=== PATIENT | male | born 1995 | race Caucasian/White ===

== ENCOUNTER → 2018-01-27 12:01 | Outpatient (CLI) | payer BC, MEDICAID, SELFPAY ==
[2018-01-27 14:30] LABS: Erythrocyte Sedimentation Rate 8 mm/hr (0-15)
[2018-01-27 14:38] LABS: Absolute Lymphocyte Count 1.16 X10^3/ul (0.83-4.51); Absolute Neutrophil Count 3.5 X10^3/uL (2.0-7.7); Basophil# 0.02 X10^3/uL; Basophil% 0.4 % (0-1); Eosinophil# 0.23 X10^3/uL; Hematocrit 41.4 % (40-54); Hemoglobin 13.1 g/dl (13.0-16.5); Lymphocyte # 1.16 X10^3/ul (4.0); Lymphocyte % 20.4 % (19-41); Mean Corp Hgb Conc 31.6 g/gl (32-36); Mean Corpuscular Hgb 25.9 pg (27.0-32.0); Mean Corpuscular Volume 81.8 fL (80-94); Mean Platelet Vol. 8.9 fl (6.2-12.0); Monocyte# 0.75 X10^3/uL; Monocyte% 13.2 % (0-10); Neutrophil # 3.53 X10^3/uL (2.7-7.7); Platelet Count 315 K/mm3 (150-450); RBC Distribution Width CV 14.2 % (11.6-14.6); RBC Distribution Width SD 42.4 fl (35.1-43.9); Red Blood Count 5.06 M/mm3 (4.6-6.2); White Blood Count 5.7 K/mm3 (4.4-11.0)
[2018-01-27 14:40] LABS: AST(SGOT) 21 U/L (15-37); Alanine Aminotransfer ALT/SGPT 26 U/L (16-61); Albumin, Serum 3.8 g/dL (3.2-5.0); Alkaline Phosphatase 81 U/L (45-117); Anion Gap 7 (5-15); BUN 12 mg/dL (7-18); BUN/Creat Ratio 12.3 RATIO (10-20); Calcium,Total 8.7 mg/dL (8.5-10.1); Chloride 105 mmol/L (98-107); Creatinine, Serum 0.98 mg/dL (0.70-1.30); EST Glomerular Filtration Rate 99 mL/min (>60); Est Glom Filt Rate - Afr Amer 120 mL/min (>60); Glucose 88 mg/dL (74-106); Protein, Total 7.8 g/dL (6.4-8.2); Sodium Level 141 mmol/L (136-145)
[2018-01-27 14:41] LABS: POSITIVE COUNT NO; POSITIVE DIFFERENTIAL NO; POSITIVE MORPHOLOGY NO
== END ==
PROVIDERS: Family Provider Family Medicine; PCP Family Medicine; Visit Provider Family Medicine
DX: K51.90 Ulcerative colitis, unspecified, without complications (principal)
CPT/HCPCS: 36415; 80053; 85025; 85652

== ENCOUNTER → 2018-07-21 11:13 | Outpatient (CLI) | payer BC, MEDICAID, SELFPAY ==
[2015-12-06 10:06] VITALS: BMI 21.1
[2018-07-21 13:40] LABS: Absolute Lymphocyte Count 0.97 X10^3/ul (0.83-4.51); Basophil# 0.02 X10^3/uL; Basophil% 0.4 % (0-1); Eosinophil# 0.13 X10^3/uL; Eosinophils% 2.7 % (0-5); Hemoglobin 13.6 g/dl (13.0-16.5); Lymphocyte # 0.97 X10^3/ul (4.0); Lymphocyte % 20.2 % (19-41); Mean Corp Hgb Conc 32.4 g/gl (32-36); Mean Corpuscular Hgb 27.2 pg (27.0-32.0); Mean Platelet Vol. 9.2 fl (6.2-12.0); Monocyte# 0.65 X10^3/uL; Monocyte% 13.5 % (0-10); Neutrophil # 3.03 X10^3/uL (2.7-7.7); POSITIVE COUNT NO; POSITIVE DIFFERENTIAL NO; POSITIVE MORPHOLOGY NO; Platelet Count 305 K/mm3 (150-450); RBC Distribution Width CV 13.4 % (11.6-14.6); RBC Distribution Width SD 40.3 fl (35.1-43.9); White Blood Count 4.8 K/mm3 (4.4-11.0)
[2018-07-21 13:59] LABS: ALB/GLOB Ratio 1.2 RATIO (0.9-2.4); AST(SGOT) 20 U/L (15-37); Alanine Aminotransfer ALT/SGPT 36 U/L (16-61); Albumin, Serum 4.1 g/dL (3.2-5.0); Alkaline Phosphatase 77 U/L (45-117); Anion Gap 11 (5-15); BUN 10 mg/dL (7-18); BUN/Creat Ratio 11.4 RATIO (10-20); Calcium,Total 9.1 mg/dL (8.5-10.1); Chloride 106 mmol/L (98-107); Creatinine, Serum 0.88 mg/dL (0.70-1.30); EST Glomerular Filtration Rate 112 mL/min (>60); Est Glom Filt Rate - Afr Amer 136 mL/min (>60); Globulin 3.5 g/dL (2.2-4.2); Glucose 80 mg/dL (74-106); Potassium 3.9 mmol/L (3.5-5.1); Protein, Total 7.6 g/dL (6.4-8.2); Sodium Level 143 mmol/L (136-145)
== END ==
PROVIDERS: Family Provider Family Medicine; PCP Family Medicine; Visit Provider Family Medicine
DX: K51.90 Ulcerative colitis, unspecified, without complications (principal)
CPT/HCPCS: 36415; 80053; 85025

== ENCOUNTER → 2019-01-19 10:22 | Outpatient (CLI) | payer BC, MEDICAID, SELFPAY ==
[2015-12-06 10:06] VITALS: BMI 21.1
[2019-01-19 12:39] LABS: AST(SGOT) 22 U/L (15-37); Alanine Aminotransfer ALT/SGPT 21 U/L (16-61); Albumin, Serum 3.6 g/dL (3.2-5.0); Alkaline Phosphatase 72 U/L (45-117); Anion Gap 6 (5-15); BUN 12 mg/dL (7-18); BUN/Creat Ratio 10.2 RATIO (10-20); Calcium,Total 8.9 mg/dL (8.5-10.1); Chloride 105 mmol/L (98-107); Creatinine, Serum 1.18 mg/dL (0.70-1.30); EST Glomerular Filtration Rate 79 mL/min (>60); Est Glom Filt Rate - Afr Amer 96 mL/min (>60); Globulin 3.6 g/dL (2.2-4.2); Glucose 79 mg/dL (74-106); Potassium 4.2 mmol/L (3.5-5.1); Protein, Total 7.2 g/dL (6.4-8.2); Sodium Level 138 mmol/L (136-145)
[2019-01-19 12:53] LABS: Absolute Lymphocyte Count 0.77 X10^3/ul (0.83-4.51); Absolute Neutrophil Count 3.2 X10^3/uL (2.0-7.7); Basophil# 0.03 X10^3/uL; Basophil% 0.6 % (0-1); Eosinophil# 0.28 X10^3/uL; Eosinophils% 5.4 % (0-5); Hematocrit 39.8 % (40-54); Lymphocyte # 0.77 X10^3/ul (4.0); Lymphocyte % 14.9 % (19-41); Mean Corp Hgb Conc 32.7 g/gl (32-36); Mean Corpuscular Hgb 26.9 pg (27.0-32.0); Mean Corpuscular Volume 82.4 fL (80-94); Mean Platelet Vol. 8.8 fl (6.2-12.0); Monocyte# 0.89 X10^3/uL; Monocyte% 17.2 % (0-10); Neutrophil % 61.9 % (47-70); Platelet Count 383 K/mm3 (150-450); RBC Distribution Width CV 13.3 % (11.6-14.6); RBC Distribution Width SD 40.5 fl (35.1-43.9); Red Blood Count 4.83 M/mm3 (4.6-6.2); White Blood Count 5.2 K/mm3 (4.4-11.0)
[2019-01-19 13:03] LABS: POSITIVE COUNT NO; POSITIVE DIFFERENTIAL NO; POSITIVE MORPHOLOGY NO
[2019-01-19 13:05] LABS: Erythrocyte Sedimentation Rate 13 mm/hr (0-15)
== END ==
PROVIDERS: Family Provider Family Medicine; PCP Family Medicine; Referring Provider Family Medicine; Visit Provider Family Medicine
DX: K51.90 Ulcerative colitis, unspecified, without complications (principal)
CPT/HCPCS: 36415; 80053; 85025; 85652

== ENCOUNTER 2019-01-29 17:19 | Emergency (ER) | payer BC, MEDICAID, SELFPAY ==
[2019-01-29 17:19] VITALS: BP 128/76; PULSE 112; RESP 16; TEMP 37.3; O2SAT 99; BMI 24.3
--- NOTE | 2019-01-29 18:00 | ED.VIS.GEN ---
History of Present Illness <TariBenny - Last Filed: 01/29/19 19:01> Informant: Patient, Family Onset: Yesterday Context: Gradual Onset Timing: Continuous Quality: aching Location: left calf Current Severity: Moderate Maximum Severity: Severe Worsened by: walking Relieved by: rest Associated Symptoms: calf swellinbg Narrative: 23-year-old male with a past medical history of ulcerative colitis presents with left calf pain and swelling. Patient recently was treated with Bactrim for cellulitis of his left calf after a bug bite. He was also treated with prednisone for this. He finished his prednisone yesterday. Since last evening he has had progressively worsening pain and swelling localized to the left calf. He denies any trauma or injury. He is having difficulty ambulating secondary to the pain. He has no redness or new wound. He has no numbness or tingling. No chest pain or shortness of breath. No recent travel or surgery or history of DVT or PE. Prior similar symptoms: Yes Recent Illness/Hospitalization: No <Tien Amos - Last Filed: 02/11/19 15:47> Chief Complaint: Lower Extremity Injury Past Medical History <TariBenny - Last Filed: 01/29/19 19:01> Past Medical History: - - ulcerative colitis Surgical History: no surgical history Smoking Status: Never smoker - Family History Maternal Family History: Reports: Hypertension Paternal Family History: Reports: - - gerd <Renetta Amosony - Last Filed: 02/11/19 15:47> - Allergies and Home Meds Allergies/Adverse Reactions: Allergies No Known Allergies Allergy (Verified 01/29/19 17:22) Primary Care Physician: Arash Ontiveros MD [Primary Care Provider] - 1 Week if not improving Review of Systems All systems negative except as indicated Musculoskeletal: Reports: Swelling, Extremity Pain <Tien Amos - Last Filed: 02/11/19 15:47> Physical Exam Vital Signs/Narrative: Vital Signs Temp Pulse Resp BP Pulse Ox 01/29/19 17:19 99.1 F 112 H 16 128/76 H 99 <TariBenny - Last Filed: 01/29/19 19:01> Vital Signs/Narrative: Vital Signs Temp Pulse Resp BP Pulse Ox 01/29/19 17:19 99.1 F 112 H 16 128/76 H 99 Inital Vital Signs reviewed: Yes General: Well nourished, Well developed, No Acute Distress Head: Normocephalic, Atraumatic Eyes: Perrl, EOMI ENT: Moist mucous membranes Neck: Supple, Nontender Cardiovascular: Regular rate, Regular rhythm Respiratory: No distress, CTA bilaterally, Chest nontender Abdomen: Soft, Nontender, Nondistended, Normal bowel sounds, No masses Back: Nontender Extremities: Edema - Left calf swelling but there is no redness or warmth or signs of trauma or infection. Patient has normal plantarflexion and dorsiflexion actively. No pain over the Achilles. Vazquez test negative. DP and PT pulse are normal. Sensation is normal.. Negative for: Tenderness, Calf Tenderness Skin: Normal color, No rash Neurological: Alert, Oriented x3, Normal Strength, Normal Sensation, Normal DTR Psychological: Normal affect <Tien Amos - Last Filed: 02/11/19 15:47> Diagnostic/Tx/Re-eval - Medical Decision Making Patient presented for evaluation secondary to left calf pain. IV was established laboratory studies were obtained. CBC was unremarkable, no evidence of leukocytosis. Chemistry panel shows normal renal function normal electrolytes. D-dimer was found to be negative. CK was negative making the likelihood of myositis or other infiltrative infection or process very unlikely. Patient was reevaluated, continues to have normal circulation, normal neurologic function, normal range of motion, and no real objective findings other than pain in his calf. At this point this likely is an element of a calf strain. Patient was recommended conservative management measures, was given reassurance, and the patient was discharged. <Benny Marc - Last Filed: 01/29/19 19:01> ED Disposition <Benny Marc - Last Filed: 01/29/19 19:01> <Tien Amos - Last Filed: 02/11/19 15:47> - Plan for ED Patient: Disposition: Home or Assisted Living Diagnosis: Pain of left calf Instructions: Leg Spasm Referrals: Arash Ontiveros MD [Primary Care Provider] - 1 Week if not improving
[2019-01-29 18:17] LABS: Absolute Lymphocyte Count 1.43 X10^3/ul (0.83-4.51); Absolute Neutrophil Count 7.8 X10^3/uL (2.0-7.7); Basophil# 0.04 X10^3/uL; Basophil% 0.4 % (0-1); Eosinophil# 0.13 X10^3/uL; Eosinophils% 1.2 % (0-5); Hematocrit 38.3 % (40-54); Hemoglobin 12.5 g/dl (13.0-16.5); Lymphocyte # 1.43 X10^3/ul (4.0); Lymphocyte % 13.6 % (19-41); Mean Corp Hgb Conc 32.6 g/gl (32-36); Mean Corpuscular Volume 82.7 fL (80-94); Mean Platelet Vol. 8.3 fl (6.2-12.0); Monocyte# 1.13 X10^3/uL; Monocyte% 10.7 % (0-10); Neutrophil # 7.78 X10^3/uL (2.7-7.7); Neutrophil % 73.9 % (47-70); Platelet Count 321 K/mm3 (150-450); RBC Distribution Width CV 13.3 % (11.6-14.6); RBC Distribution Width SD 40.7 fl (35.1-43.9); Red Blood Count 4.63 M/mm3 (4.6-6.2); White Blood Count 10.5 K/mm3 (4.4-11.0)
[2019-01-29 18:21] LABS: POSITIVE COUNT NO; POSITIVE DIFFERENTIAL NO; POSITIVE MORPHOLOGY NO
[2019-01-29 18:26] LABS: Anion Gap 10 (5-15); BUN 19 mg/dL (7-18); BUN/Creat Ratio 18.6 RATIO (10-20); Calcium,Total 8.9 mg/dL (8.5-10.1); Chloride 104 mmol/L (98-107); Creatinine, Serum 1.02 mg/dL (0.70-1.30); EST Glomerular Filtration Rate 94 mL/min (>60); Est Glom Filt Rate - Afr Amer 114 mL/min (>60); Estimated Creatinine Clearance 121.51 ml/min; Glucose 86 mg/dL (74-106); Potassium 3.7 mmol/L (3.5-5.1); Sodium Level 143 mmol/L (136-145)
[2019-01-29 18:32] LABS: D-Dimer Quantitative (DVT/PE) 0.33 FEU/ug/m (0.27-0.49)
[2019-01-29 18:35] LABS: CPK Total, Creatine Kinase 85 U/L (39-308)
[2019-01-31 10:07] LABS: Uric Acid 4.9 mg/dL (3.5-7.2)
== END 2019-01-29 19:09 | disposition home or self-care (01) ==
PROVIDERS: Physician Assistant Medical; Emergency Provider Emergency Medicine; Family Provider Family Medicine; PCP Family Medicine
DX: M79.605 Pain in left leg (principal); M79.89 Other specified soft tissue disorders; K51.90 Ulcerative colitis, unspecified, without complications; Z79.899 Other long term (current) drug therapy
CPT/HCPCS: 80048; 82550; 84550; 85025; 85379; 99283; A4216

== ENCOUNTER → 2019-06-13 15:14 | Outpatient (CLI) | payer BC, MEDICAID, SELFPAY ==
[2019-06-13 18:00] LABS: Absolute Neutrophil Count 2.9 X10^3/uL (2.0-7.7); Basophil# 0.04 X10^3/uL; Basophil% 0.8 % (0-1); Eosinophil# 0.24 X10^3/uL; Hematocrit 42.8 % (40-54); Hemoglobin 13.6 g/dL (13.0-16.5); Mean Corp Hgb Conc 31.8 g/dL (32-36); Mean Corpuscular Hgb 26.6 pg (27.0-32.0); Mean Corpuscular Volume 83.8 fL (80-94); Mean Platelet Vol. 9.5 fl (6.2-12.0); Monocyte# 0.52 X10^3/uL; Monocyte% 10.9 % (0-10); NRBC Flagged by Analyzer 0 % (0-5); Neutrophil # 2.87 X10^3/uL (2.7-7.7); Neutrophil % 60.1 % (47-70); Platelet Count 312 K/mm3 (150-450); RBC Distribution Width CV 13.2 % (11.6-14.6); RBC Distribution Width SD 40.6 fl (35.1-43.9); Red Blood Count 5.11 M/mm3 (4.6-6.2); White Blood Count 4.8 K/mm3 (4.4-11.0)
[2019-06-13 18:09] LABS: Erythrocyte Sedimentation Rate 6 mm/hr (0-15)
[2019-06-13 18:22] LABS: ALB/GLOB Ratio 1.1 RATIO (0.9-2.4); AST(SGOT) 19 U/L (15-37); Alanine Aminotransfer ALT/SGPT 24 U/L (16-61); Albumin, Serum 4.1 g/dL (3.2-5.0); Alkaline Phosphatase 73 U/L (45-117); Anion Gap 5 (5-15); BUN 11 mg/dL (7-18); BUN/Creat Ratio 11.7 RATIO (10-20); Calcium,Total 9.2 mg/dL (8.5-10.1); Chloride 107 mmol/L (98-107); Creatinine, Serum 0.94 mg/dL (0.70-1.30); EST Glomerular Filtration Rate 103 mL/min (>60); Est Glom Filt Rate - Afr Amer 124 mL/min (>60); Globulin 3.7 g/dL (2.2-4.2); Glucose 89 mg/dL (74-106); Protein, Total 7.8 g/dL (6.4-8.2); Sodium Level 140 mmol/L (136-145)
== END ==
PROVIDERS: Visit Provider Family Medicine
DX: K51.90 Ulcerative colitis, unspecified, without complications (principal)
CPT/HCPCS: 36415; 80053; 85025; 85652

== ENCOUNTER 2020-04-13 18:09 | Emergency (ER) | payer MEDICAID, SELFPAY ==
[2020-04-13 18:11] VITALS: BP 119/94; PULSE 117; RESP 21; TEMP 36.2; O2SAT 96; BMI 24.3
--- NOTE | 2020-04-13 18:32 | EKG12_ITS ---
Test Reason : DYSRHYTHMIA Blood Pressure : / mmHG Vent. Rate : 107 BPM Atrial Rate : 107 BPM P-R Int : 000 ms QRS Dur : 078 ms QT Int : 286 ms P-R-T Axes : 000 019 027 degrees QTc Int : 381 ms Atrial fibrillation with rapid ventricular response Abnormal ECG Confirmed by JOANIE ZAPATA, SANDY ([id number]), supervising editor trailer YOLANDA ARCINIEGA ([id number]) on 04/15/2020 2:07:02 PM Referred By: LEON Confirmed By:SANDY NAIR MD
--- NOTE | 2020-04-13 18:32 | RAD_ITS ---
STUDY: X-RAY CHEST REASON FOR EXAM: Male, 25 years old. Seizure, vomiting today. TECHNIQUE: Single AP portable view of the chest. COMPARISON: None. FINDINGS: The lungs are clear and expanded. There is no demonstrated pleural abnormality. Normal size heart. Normal mediastinum and aminata. Normal visualized pulmonary arteries. Normal visualized aortic arch and descending thoracic aorta. Normal visualized thoracic spine. Normal visualized ribs, clavicles, and shoulders. There is no demonstrated abnormality of the visualized soft tissue structures of the upper abdomen. RAD/Chest 1 View (Portable) IMPRESSION: Normal x-ray examination of the chest. Electronically Signed: Barby Grigsby MD at 20:14 EDT Tel , Service support ,
--- NOTE | 2020-04-13 18:33 | CT_ITS ---
STUDY: CT BRAIN WITHOUT CONTRAST REASON FOR EXAM: Male, 25 years old. SEIZURE, NAUSEA RADIATION DOSAGE (If Supplied By Facility): CTDIvol = ( 60.81 ) mGy, DLP = ( 1112.69 ) mGycm TECHNIQUE: Transaxial CT imaging of the brain was performed without administration of intravenous contrast material. Individualized dose optimization techniques were used for this CT. COMPARISON: 11/23/2013. FINDINGS: Normal soft tissue structures. Normal calvarium. Normal size ventricles and extra-axial spaces for the patient''s age. Normal white matter tracts of the cerebral hemispheres. Normal basal ganglia and thalami. Normal brainstem. Normal cerebellum. There is no intracranial hemorrhage. There are no findings of an acute ischemic infarction. Mild new coastal thickening in the maxillary sinuses bilaterally. CT/Brain/Head without Contrast IMPRESSION: Normal unenhanced CT scan of the brain. Electronically Signed: Barby Grigsby MD at 20:32 EDT Tel , Service support ,
[2020-04-13] MEDS: 0.9% Normal Saline 1,000 ML 1000 ML IV (18:40)
[2020-04-13] MEDS: LORazepam 2 MG/ML Syringe 1 MG IV (18:40)
[2020-04-13 18:42] VITALS: O2SAT 100
[2020-04-13 19:08] LABS: Absolute Lymphocyte Count 2.02 X10^3/uL (0.83-4.51); Basophil# 0.08 X10^3/uL; Basophil% 0.5 % (0-1); Eosinophil# 0.34 X10^3/uL; Eosinophils% 2.3 % (0-5); Hematocrit 45.7 % (40-54); Hemoglobin 14.8 g/dL (13.0-16.5); Lymphocyte # 2.02 X10^3/ul (4.0); Lymphocyte % 13.5 % (19-41); Mean Corp Hgb Conc 32.4 g/dL (32-36); Mean Corpuscular Hgb 27.3 pg (27.0-32.0); Mean Corpuscular Volume 84.2 fL (80-94); Mean Platelet Vol. 9.4 fl (6.2-12.0); Monocyte# 1.27 X10^3/uL; Monocyte% 8.5 % (0-10); NRBC Flagged by Analyzer 0 % (0-5); Neutrophil # 10.96 X10^3/uL (2.7-7.7); Neutrophil % 73.2 % (47-70); Platelet Count 355 K/mm3 (150-450); RBC Distribution Width SD 39.3 fl (35.1-43.9); Red Blood Count 5.43 M/mm3 (4.6-6.2)
[2020-04-13 20:24] LABS: Anion Gap 5 (5-15); BUN 16 mg/dL (7-18); BUN/Creat Ratio 13.6 RATIO (10-20); Calcium,Total 8.2 mg/dL (8.5-10.1); Chloride 110 mmol/L (98-107); Creatinine, Serum 1.18 mg/dL (0.70-1.30); EST Glomerular Filtration Rate 79 mL/min (>60); Est Glom Filt Rate - Afr Amer 95 mL/min (>60); Estimated Creatinine Clearance 103.21 ml/min; Glucose 98 mg/dL (74-106); Magnesium 2.6 mg/dL (1.6-2.6); Potassium 3.4 mmol/L (3.5-5.1); Sodium Level 142 mmol/L (136-145); Thyroid Stim Hormone (TSH) 0.71 uIU/mL (0.358-3.74)
[2020-04-13 20:31] VITALS: BP 127/75; PULSE 97; RESP 19; O2SAT 99
--- NOTE | 2020-04-13 22:02 | ED.DCSUM_ITS ---
- ER Visit Summary Date of Service: 04/13/20 Chief Complaint: Seizure History of Present Illness: The patient is a [address] Rogers. Patient was at his parents house and had eaten and was outside picking up sticks. He reports that he felt like he was in a dream. States that he became nauseated an d lightheaded. His vision blurred. He denies any chest pain or palpitations. He went into the house and did not remember what he had eaten that day and does not remember any of the events that followed. He states the next thing he know he woke up on the bathroom floor. Mother reports the patient was sitting on the toilet looking weak and confused. He then had extended both arms and fell off the toilet into the bathtub. He had bilateral tonic-clonic activity of his upper and lower extremities last approximately 30 seconds. Did not bite his tongue. No urinary incontinence. He was postictal however. On the way to the emergency department patient become nauseated and vomited 3 times. No blood in his emesis. He also reports he developed palpitations on the way here. He denies any fever, chills, chest pain, cough, or other complaints. Physical Examination: Vitals: 97.2, 119/94, 117, 21, 100% room air which not hypoxic. General: Well-nourished and well-developed. Head: Normocephalic. Small abrasion to the right side of his chin. He has no dental malocclusion or loose teeth. Neck: Supple, no lymphadenopathy. No JVD. Nontender. Cardiovascular: Tachycardic irregular rhythm. No murmurs. Respiratory: No respiratory distress. Clear to auscultation bilaterally. Abdominal: Soft, nontender, nondistended, normal bowel sounds. No guarding, rebound, or peritoneal signs. Back: No vertebral tenderness. Mild tenderness palpation just to the left of his upper thoracic spine. Extremities: Nontender, no edema. Skin: Normal color, no rash. Neurologic: Alert and oriented ?3. Cranial nerves II through XII are intact. Normal strength and sensation. Psych: Normal affect. Test Results: EKG shows atrial fibrillation [address] changes. Troponin is negative. Chem-7 shows potassium 3.4 and chloride 110. Calcium is 8.2. CBC shows a white count of 15.0 with 73 segmented neutrophils, 14 lymphocytes, immature granulocytes of 2.0%. I suspect that the white count is demargination from the seizure. Magnesium is normal. TSH is normal. CT head is normal. Chest x-ray is normal. Emergency Department Course and Treatment: Patient was given a dose of Ativan IV here. He has not had any further seizure activity. He spontaneously converted back to sinus rhythm. Treatment Plan: Patient was discussed with Dr. Rowley. He feels that he is at 25 developing new onset atrial fibrillation he would benefit from seeing metal or wood blocker. With the question of transient global amnesia and subsequent seizure with new onset atrial fibrillation I also feel that the patient would benefit from seeing a neurologist. I discussed this with the family. They asked to go to [facility]. He was discussed with the hospitalist there who is accepted him in transfer. Disposition: Transferred in improved condition. Impression: 1. Atrial fibrillation, new onset. 2. Spontaneous conversion to normal sinus rhythm. 3. New onset seizures. This note was generated with [employer] software. It may contain incorrect words, spelling, and punctuation that were not noted in review of the chart prior to signing ED Disposition - Plan for ED Patient: Referrals: Maurice Lamar MD [Primary Care Provider] -
[2020-04-13 22:05] VITALS: BP 124/74; PULSE 91; RESP 22; O2SAT 99
[2020-04-13 22:19] VITALS: BP 124/74; PULSE 91; RESP 15; TEMP 36.2; O2SAT 99
== END 2020-04-13 22:30 | disposition short-term general hospital (02) ==
LOC: ED 19:16
PROVIDERS: Emergency Provider Emergency Medicine; PCP Family Medicine
DX: I48.91 Unspecified atrial fibrillation (principal); R56.9 Unspecified convulsions
CPT/HCPCS: 36415; 70450; 71045; 80048; 83735; 84443; 84484; 85025; 93005; 96361; 96374; 99285; J7030; A4216

== ENCOUNTER → 2020-07-29 12:14 | Outpatient (CLI) | payer MEDICAID, SELFPAY ==
[2020-07-29 15:44] LABS: Absolute Lymphocyte Count 1.07 X10^3/uL (0.83-4.51); Absolute Neutrophil Count 4.9 X10^3/uL (2.0-7.7); Basophil# 0.04 X10^3/uL; Basophil% 0.6 % (0-1); Eosinophil# 0.12 X10^3/uL; Eosinophils% 1.7 % (0-5); Hematocrit 44.3 % (40-54); Hemoglobin 14.1 g/dL (13.0-16.5); Lymphocyte # 1.07 X10^3/ul (4.0); Lymphocyte % 15.5 % (19-41); Mean Corp Hgb Conc 31.8 g/dL (32-36); Mean Corpuscular Hgb 27.1 pg (27.0-32.0); Mean Corpuscular Volume 85.2 fL (80-94); Mean Platelet Vol. 9.2 fl (6.2-12.0); Monocyte% 11.6 % (0-10); NRBC Flagged by Analyzer 0 % (0-5); Neutrophil # 4.85 X10^3/uL (2.7-7.7); Neutrophil % 70.5 % (47-70); Platelet Count 330 K/mm3 (150-450); RBC Distribution Width CV 13.4 % (11.6-14.6); RBC Distribution Width SD 41.1 fl (35.1-43.9); White Blood Count 6.9 K/mm3 (4.4-11.0)
[2020-07-29 15:50] LABS: ALB/GLOB Ratio 1.1 RATIO (0.9-2.4); AST(SGOT) 24 U/L (15-37); Alanine Aminotransfer ALT/SGPT 31 U/L (16-61); Alkaline Phosphatase 78 U/L (45-117); Anion Gap 7 (5-15); BUN 10 mg/dL (7-18); BUN/Creat Ratio 10.3 RATIO (10-20); Calcium,Total 9.1 mg/dL (8.5-10.1); Chloride 104 mmol/L (98-107); Creatinine, Serum 0.97 mg/dL (0.70-1.30); EST Glomerular Filtration Rate 98 mL/min (>60); Est Glom Filt Rate - Afr Amer 119 mL/min (>60); Globulin 3.8 g/dL (2.2-4.2); Glucose 74 mg/dL (74-106); Potassium 3.5 mmol/L (3.5-5.1); Protein, Total 7.8 g/dL (6.4-8.2); Sodium Level 139 mmol/L (136-145)
[2020-07-29 16:15] LABS: Erythrocyte Sedimentation Rate 8 mm/hr (0-15)
== END ==
PROVIDERS: PCP Family Medicine; Visit Provider Family Medicine
DX: K51.90 Ulcerative colitis, unspecified, without complications (principal)
CPT/HCPCS: 36415; 80053; 85025; 85652

== ENCOUNTER → 2021-08-04 | Outpatient (CLI) | payer MEDICAID, SELFPAY | END | disposition home or self-care (01) | PROVIDERS: PCP Family Medicine; Referring Provider Family Medicine; Visit Provider Family Medicine | DX: Z20.822 Contact with and (suspected) exposure to COVID-19 (principal) | CPT/HCPCS: 87635; U0005; U0003 ==

== ENCOUNTER 2021-10-28 11:53 | Outpatient (CLI) | payer MEDICAID, SELFPAY ==
[2021-10-28 13:18] LABS: Erythrocyte Sedimentation Rate 25 mm/hr (0-20)
[2021-10-28 13:20] LABS: Absolute Lymphocyte Count 1.38 X10^3/uL (0.83-4.51); Absolute Neutrophil Count 3.8 X10^3/uL (2.0-7.7); Basophil# 0.04 X10^3/uL; Basophil% 0.7 % (0-1); Eosinophil# 0.17 X10^3/uL; Eosinophils% 2.8 % (0-5); Hematocrit 41.8 % (40-54); Hemoglobin 13.7 g/dL (13.0-16.5); Lymphocyte # 1.38 X10^3/ul (0.83-4.51); Lymphocyte % 22.9 % (19-41); Mean Corp Hgb Conc 32.8 g/dL (32-36); Mean Corpuscular Hgb 27.9 pg (27.0-32.0); Mean Corpuscular Volume 85.1 fL (80-94); Mean Platelet Vol. 8.7 fl (6.2-12.0); Monocyte# 0.58 X10^3/uL; Monocyte% 9.6 % (0-10); NRBC Flagged by Analyzer 0 % (0-5); Neutrophil # 3.83 X10^3/uL (2.7-7.7); Neutrophil % 63.7 % (47-70); Platelet Count 360 K/mm3 (150-450); RBC Distribution Width CV 12.6 % (11.6-14.6); RBC Distribution Width SD 38.9 fl (35.1-43.9); Red Blood Count 4.91 M/mm3 (4.6-6.2)
[2021-10-28 13:48] LABS: AST(SGOT) 19 U/L (15-37); Alanine Aminotransfer ALT/SGPT 22 U/L (16-61); Albumin, Serum 3.9 g/dL (3.2-5.0); Alkaline Phosphatase 79 U/L (45-117); Anion Gap 5 (5-15); BUN 13 mg/dL (7-18); BUN/Creat Ratio 13.5 RATIO (10-20); CRP 9.48 mg/L (0.0-3.0); Calcium,Total 9.2 mg/dL (8.5-10.1); Chloride 107 mmol/L (98-107); Creatinine, Serum 0.96 mg/dL (0.70-1.30); EST Glomerular Filtration Rate 99 mL/min (>60); Est Glom Filt Rate - Afr Amer 119 mL/min (>60); Glucose 90 mg/dL (74-106); LDH 177 U/L (87-241); Potassium 3.7 mmol/L (3.5-5.1); Protein, Total 7.9 g/dL (6.4-8.2); Sodium Level 139 mmol/L (136-145)
[2021-10-30 14:10] LABS: Anti-Centromere B Ab <0.2 AI (0.0-0.9); Anti-Chromatin <0.2 AI (0.0-0.9); Anti-Jo <0.2 AI (0.0-0.9); Anti-Scleroderma-70 AB <0.2 AI (0.0-0.9); RNP Ab 0.2 AI (0.0-0.9); SJOGREN'S Anti-SS-A test < 0.2 AI (0.0-0.9); SJOGREN'S Anti-SS-B test < 0.2 AI (0.0-0.9); Smith Ab <0.2 AI (0.0-0.9)
[2021-10-30 17:09] LABS: Anti-dsDNA Ab <1 IU/mL (0-9)
[2021-11-02 06:37] LABS: Angiotensin Convert Enzyme 44 U/L (14-82); Cytoplasmic Ab (C-ANCA) <1:20 titer (Neg:<1:20); Endomysial Antibody IgA Negative (Negative); Immunoglobulin A 170 mg/dL (90-386); Immunoglobulin E 8 IU/mL (6-495); Immunoglobulin G 1143 mg/dL (603-1613)
[2021-11-02 21:18] LABS: Immunoglobulin M 78 mg/dL (20-172); Perinuclear Ab (P-ANCA) <1:20 titer (Neg:<1:20); t-Transglutaminase IgA <2 U/mL (0-3)
== END 2021-10-28 23:59 | disposition home or self-care (01) ==
LOC: LAB 11:55
PROVIDERS: PCP Family Medicine; Referring Provider Internal Medicine Gastroenterology; Visit Provider Internal Medicine Gastroenterology
DX: K51.90 Ulcerative colitis, unspecified, without complications (principal)
CPT/HCPCS: 36415; 80053; 82164; 82784; 82785; 83516; 83615; 85025; 85652; 86140; 86225; 86235; 86255; 86256

== ENCOUNTER 2021-10-29 10:48 | Outpatient (CLI) | payer MEDICAID, SELFPAY ==
[2021-10-31 21:28] LABS: Calprotectin, Stool 454 ug/g (0-120)
== END 2021-10-29 23:59 | disposition home or self-care (01) ==
PROVIDERS: PCP Family Medicine; Visit Provider Internal Medicine Gastroenterology
DX: K51.90 Ulcerative colitis, unspecified, without complications (principal)
CPT/HCPCS: 83993

== ENCOUNTER → 2022-04-08 | Outpatient (CLI) | payer MEDICAID, SELFPAY ==
[2022-04-08 09:00] LABS: Erythrocyte Sedimentation Rate 16 mm/hr (0-20)
[2022-04-08 09:24] LABS: CRP 4.98 mg/L (0.0-3.0)
[2022-04-08 09:39] LABS: Cholesterol 175 mg/dL (200); High Density Lipoprotein 48 mg/dL; Triglycerides 77 mg/dL; Very Low Density Lipoprotein 15 mg/dL (5-40)
== END | disposition home or self-care (01) ==
LOC: LAB 08:34
PROVIDERS: PCP Family Medicine; Visit Provider Internal Medicine Gastroenterology
DX: K51.90 Ulcerative colitis, unspecified, without complications (principal); Z13.220 Encounter for screening for lipoid disorders
CPT/HCPCS: 36415; 80061; 85652; 86140

== ENCOUNTER → 2022-04-10 | Outpatient (CLI) | payer MEDICAID, SELFPAY ==
[2022-04-10 11:52] LABS: Rubella IgG Reactive (Nonreactive)
[2022-04-15 12:08] LABS: HEPATITIS B SURFACE AG Negative (Negative); Hep C Antibodies <0.1 s/co ratio (0.0-0.9); Hepatitis A IgM Antibody Negative (Negative); Hepatitis B Core AB IgM Negative (Negative); QNTFERON TB Mitogen Value > 10.00 IU/mL (.); QNTFERON TB Nil Value 0.02 IU/mL (.); QNTFERON TB1+ Ag Value 0.03 IU/mL (.); QNTFERON TB2+ Ag Value 0.04 IU/mL (.)
[2022-04-16 15:26] LABS: Mumps Antibody, IgM < 0.80 AU (0.00-0.79); QNTIFERON TB Positive Criteria Negative (Negative); V-Zoster IgG (Immunity) 2415 index (Immune >165)
== END | disposition home or self-care (01) ==
LOC: LAB 09:59
PROVIDERS: PCP Family Medicine; Referring Provider Internal Medicine Gastroenterology; Visit Provider Internal Medicine Gastroenterology
DX: K51.90 Ulcerative colitis, unspecified, without complications (principal)
CPT/HCPCS: 36415; 80074; 86480; 86735; 86762; 86787

== ENCOUNTER 2022-07-22 19:21 | Emergency (ER) | payer MEDICAID, SELFPAY ==
[2022-07-22 19:21] VITALS: BP 150/88; PULSE 90; RESP 18; TEMP 36.7; O2SAT 100; BMI 22.8
[2022-07-22 19:35] LABS: Absolute Lymphocyte Count 1.71 X10^3/uL (0.83-4.51); Absolute Neutrophil Count 2.4 X10^3/uL (2.0-7.7); Basophil# 0.04 X10^3/uL; Basophil% 0.7 % (0-1); Eosinophil# 0.33 X10^3/uL; Eosinophils% 6.2 % (0-5); Hematocrit 41.2 % (40-54); Hemoglobin 13.7 g/dL (13.0-16.5); Lymphocyte # 1.71 X10^3/ul (0.83-4.51); Lymphocyte % 31.9 % (19-41); Mean Corp Hgb Conc 33.3 g/dL (32-36); Mean Corpuscular Hgb 27.6 pg (27.0-32.0); Mean Corpuscular Volume 82.9 fL (80-94); Mean Platelet Vol. 8.8 fl (6.2-12.0); Monocyte# 0.92 X10^3/uL; Monocyte% 17.2 % (0-10); NRBC Flagged by Analyzer 0 % (0-5); Neutrophil # 2.36 X10^3/uL (2.7-7.7); Platelet Count 287 K/mm3 (150-450); RBC Distribution Width CV 12.8 % (11.6-14.6); RBC Distribution Width SD 38.2 fl (35.1-43.9); Red Blood Count 4.97 M/mm3 (4.6-6.2); White Blood Count 5.4 K/mm3 (4.4-11.0)
[2022-07-22 19:42] LABS: Bacteria 0 SEEN /hpf (None Seen); Red Blood Cells-Urine 0 SEEN /hpf (0-5); Squamous Epithelial Cells - UA 0 SEEN /hpf (0-5); White Blood Cells 0 SEEN /hpf (0-5)
[2022-07-22 19:43] LABS: Color, Urine Yellow (Yellow); Glucose, Dipstick Normal (Normal); Ketone-Dipstick Negative (Negative); Leukocyte Esterase-Dipstick Negative /ul (Negative); Nitrite-Dipstick Negative (Negative); Occult Blood-Urine Negative /ul (Negative); Protein-Dipstick Negative (Negative); Specific Gravity, Urine 1.025 (1.002-1.030); Urine Bilirubin Dipstick Negative (Negative); Urine Clarity Clear (Clear); Urine Urobilinogen Normal (Normal)
[2022-07-22 19:49] LABS: Anion Gap 5 (5-15); BUN 16 mg/dL (7-18); BUN/Creat Ratio 15.2 RATIO (10-20); Calcium,Total 9.1 mg/dL (8.5-10.1); Chloride 106 mmol/L (98-107); Creatinine, Serum 1.05 mg/dL (0.70-1.30); EST Glomerular Filtration Rate 89 mL/min (>60); Est Glom Filt Rate - Afr Amer 107 mL/min (>60); Estimated Creatinine Clearance 111.89 ml/min; Glucose 91 mg/dL (74-106); Potassium 3.4 mmol/L (3.5-5.1); Sodium Level 141 mmol/L (136-145)
[2022-07-22 20:34] LABS: Mucous, Urine RARE /hpf (<or=2+)
--- NOTE | 2022-07-22 21:13 | CT_ITS ---
EXAM: CT ABDOMEN AND PELVIS WITH INTRAVENOUS CONTRAST CLINICAL INDICATION: lower abd pain -- IV PO Contrast, hx of ulceratvie colitis TECHNIQUE: Helically acquired images were obtained of the abdomen and pelvis with intravenous contrast. This CT exam was performed using one or more of the following dose reduction techniques: automated exposure control, adjustment of the mA and/or kV according to patient size, and/or use of iterative reconstruction technique. This report was created using Numblebee report generation technology. CONTRAST: 100 cc of Isovue-370 IV. Oral Gastrografin. RADIATION DOSE: CTDIvol = 10.94 mGy, DLP = 641.42 mGy-cm. COMPARISON: 07/13/2015. FINDINGS: LOWER THORAX: Unremarkable. Lung bases are clear. No cardiomegaly. No significant pericardial effusion. ABDOMEN: LIVER: Unremarkable. Homogeneous. No focal mass. GALLBLADDER AND BILE DUCTS: Unremarkable. No calcified gallstones. No gallbladder distention or wall edema. No intra- or extrahepatic biliary ductal dilation. PANCREAS: Unremarkable. No focal cystic or solid mass. SPLEEN: Unremarkable. Normal size without focal cystic or solid mass. ADRENALS: Unremarkable. No nodules. KIDNEYS AND URETERS: Unremarkable. Normal renal size and position. No hydronephrosis. STOMACH AND BOWEL: Diffuse edematous wall thickening of the colon especially the descending colon through the rectum consistent with ulcerative colitis. No stomach or bowel distention. PELVIS: APPENDIX: No evidence of acute appendicitis. BLADDER: Unremarkable. REPRODUCTIVE: Unremarkable as visualized. No mass. ABDOMEN and PELVIS: INTRAPERITONEAL SPACE: Unremarkable. No ascites or other fluid collection. No free air. BONES/JOINTS: Unremarkable. No suspicious lytic or blastic abnormality. SOFT TISSUES: Unremarkable. No discrete abdominal or pelvic wall hernia. VASCULATURE: Unremarkable. Abdominal aorta is non-dilated. LYMPH NODES: Unremarkable. No enlarged lymph nodes. CT/Abdomen/Pelvis WITH Contrast IMPRESSION: Diffuse edematous wall thickening of the colon especially the descending colon through the rectum consistent with ulcerative colitis. No signs of perforation. Electronically Signed: Benny Westfall MD at 23:40 EST ,
--- NOTE | 2022-07-22 21:13 | ED.VIS.GI ---
HPI HPI - GI History of Present Illness Chief Complaint: Abd Pain Informant: patient Narrative Narrative: Sent in here by his GI doctor Dr. Mora for evaluation. Persistent waxing waning suprapubic pain for 5 days. 8-9 loose stools per day no recent antibiotics. Nonbloody. History of ulcerative colitis since 2011. He was on mesalamine, however was not helping anymore. He was taken off of this was having normal bowel movements however due to elevated antibodies recommended back on immunosuppressants. He started Humira July 06 he had his second loading dose to the no fevers. Today discussed with Dr. Mora, he was called in prednisone and high Cosamin, however was told go to ED for testing. Denies any abdominal surgeries in the past. Last loose stool was prior to arrival. Prior similar symptoms: Yes PFSH PFSH Medical History A-fib Seizure Ulcerative colitis Home Medications adalimumab 80 mg/0.8 mL subcutaneous pen kit (Humira(CF) Pen) See Rx Instructions subcut .COMPLEX #2 ea 04/23/22 [Rx Last Taken Unknown] hyoscyamine sulfate 0.125 mg tablet 0.125 mg PO TID PRN dyspepsia #45 tabs 07/22/22 [Rx Last Taken Unknown] prednisone 10 mg tablet See Rx Instructions PO DIRECTED #70 tabs 07/22/22 [Rx Last Taken Unknown] hydrocodone-acetaminophen 5-325mg 5mg-325mg 1 tab PO Q6H PRN pain 3 days #12 tabs 07/23/22 [Rx Last Taken Unknown] ondansetron 4 mg disintegrating tablet 4 mg PO Q6H PRN nausea and vomiting #10 tabs 07/23/22 [Rx Last Taken Unknown] Allergy/AdvReac Type Severity Reaction Status Date / Time No Known Allergies Allergy Verified 07/22/22 19:24 Family History Other No pertinent family history Surgical History History of colonoscopy Social History Smoking Status: Never smoker Electronic Cigarette Use: not used alcohol intake: never substance use type: does not use what type of physical activity do you participate in: none ROS ROS ED Constitutional Constitutional ED: Denies chills, fever(s) or sweats Eyes Eyes: Denies change in vision ENT ENT ED: Denies dysphagia or sore throat Cardiovascular Cardiovascular: Denies chest pain, leg edema, palpitations or racing heartbeat Respiratory/Chest Respiratory/Chest: Denies cough, dyspnea or dyspnea on exertion Gastrointestinal Gastrointestinal: Reports abdominal pain and diarrhea; Denies nausea or vomiting Genitourinary Genitourinary ED: Denies dysuria, hematuria or urinary frequency Musculoskeletal Musculoskeletal: Denies back pain, extremity pain or neck pain Integumentary Denies rash or wounds Neurologic Neurologic: Denies headache(s), paresthesias or weakness EXAM Physical Exam Const Vital Signs: 07/22/22 19:21 Temperature 98.0 F Temperature Source Temporal Pulse Rate 90 Respiratory Rate 18 Blood Pressure 150/88 H Blood Pressure Mean 108 Pulse Ox 100 Oxygen Delivery Method Room Air Positive well nourished and well developed General Appearance ED: well developed and NAD HEENT HEENT Narrative: Mild dry mucosal membranes. normocephalic and atraumatic Eyes PERRL, EOMs intact bilaterally and conjunctivae normal General Eye ED: Yes normal appearance of both eyes Neck no lymphadenopathy and supple General: Negative for tenderness Chest Wall Chest: Negative for tenderness Resp normal respiratory effort and normal air movement Effort and Inspection: symmetric chest movement; Negative for respiratory distress Cardio regular rate, regular rhythm and no murmurs Peripheral Pulses: pulses 2+ throughout GI normal to inspection, nondistended, normoactive bowel sounds GI Narrative: Mild tenderness suprapubic. Negative Alvarado's McBurney's tenderness. No guarding or rebound. Palpation: Negative for guarding or rebound tenderness present Back/Spine no CVA tenderness and no thoracic nor lumbar tenderness Extremity normal to inspection General Extremety ED: Negative for edema or tenderness General Extremity: Negative for edema Neuro oriented x3 and no sensory deficits noted Sensorium / Orientation: awake and alert Skin no rashes or lesions noted and no wounds MDM MDM MDM Narrative Medical decision making narrative: Patient tender suprapubic without guarding or rebound. History of ulcerative colitis. Labs were obtained white count 5.4 hemoglobin 13.7. Creatinine 1.05. Urine was negative. Stools were obtained and sent to the lab he reported slight bloody stools with this stool collection. Contrast CT concerns for edematous wall thickening of the colon more so the descending colon into the rectum consistent with his ulcerative colitis. There is no perforations. He later agreed with pain medicines morphine was given. Is more comfortable. I spoke with Dr. Mora, will give Solu-Medrol IV in the ED. He has prescription at his pharmacy for the prednisone treatment. He will be given prescription of hydrocodone to use as needed. Return precaution discussed otherwise outpatient follow-up. All questions were answered. Lab Data Attestation: I reviewed the patient's lab results. Labs: Laboratory Results - last 24 hr 07/22/22 07/22/22 07/22/22 19:30 19:30 19:30 WBC 5.4 RBC 4.97 Hgb 13.7 Hct 41.2 MCV 82.9 MCH 27.6 MCHC 33.3 RDW Std Deviation 38.2 RDW Coeff of Ben 12.8 Plt Count 287 MPV 8.8 Immature Gran % (Auto) 0.000 Neut % (Auto) 44.0 L Lymph % (Auto) 31.9 [place] % (Auto) 17.2 H Eos % (Auto) 6.2 H Baso % (Auto) 0.7 Absolute Neuts (auto) 2.4 Absolute Lymphs (auto) 1.71 Nucleated RBC % 0 Sodium 141 Potassium 3.4 L Chloride 106 Carbon Dioxide 30.0 Anion Gap 5 BUN 16 Creatinine 1.05 Estim Creat Clear Calc 111.89 Est GFR (MDRD) Af Amer 107 Est GFR (MDRD) Non-Af 89 BUN/Creatinine Ratio 15.2 Glucose 91 Calcium 9.1 Urine Color Yellow Urine Clarity Clear Urine pH 5.0 Ur Specific [place] 1.025 Urine Protein Negative Urine Glucose (UA) Normal Urine Ketones Negative Urine Occult Blood Negative Urine Nitrite Negative Urine Bilirubin Negative Urine Urobilinogen Normal Ur Leukocyte Esterase Negative Urine RBC 0 SEEN Urine WBC 0 SEEN Ur Squamous Epith Cells 0 SEEN Urine Bacteria 0 SEEN Urine Mucus RARE Radiography Diagnostic Testing: Clinical Impression(s) from Imaging Studies Abdomen/Pelvis CT 07/22/22 21:13 IMPRESSION: Diffuse edematous wall thickening of the colon especially the descending colon through the rectum consistent with ulcerative colitis. No signs of perforation. Electronically Signed: Benny Westfall MD at 23:40 EST , Discharge Plan Triage Chief Complaint: Abd Pain ED Provider: José Ramon Dx/Rx/DC Orders Clinical Impression: Ulcerative colitis, Abdominal pain, Diarrhea Instructions: Abdominal Pain, ED Ulcerative Colitis Prescriptions: New hydrocodone-acetaminophen 5-325 mg tablet 1 tab PO Q6H PRN (Reason: pain) 3 Days Qty: 12 0RF ondansetron 4 mg tablet,disintegrating 4 mg PO Q6H PRN (Reason: nausea and vomiting) Qty: 10 0RF No Action Humira(CF) Pen 80 mg/0.8 mL pen injector kit See Rx Instructions subcut .COMPLEX Qty: 2 0RF Rx Instructions: inject two - 80 mg/0.8 mL pens on Day 1; inject one - 80 mg/0.8 mL pen on Day 15 of therapy subcut hyoscyamine sulfate 0.125 mg tablet 0.125 mg PO TID PRN (Reason: dyspepsia) Qty: 45 2RF prednisone 10 mg tablet See Rx Instructions PO DIRECTED Qty: 70 0RF Rx Instructions: orally as directed; 4 tabs for one week, 3 tabs for one week, 2 tabs for one week, 1 tab for one week Primary Care Provider: Maurice Lamar Referrals: Maurice Lamar MD [Primary Care Provider] - Eliseo Mora DO [Med Staff - Active Staff] - 3-5 Days if not improving Activity Restrictions/Additional Instructions: CT scan with thickening swelling of your colon. Labs are stable stool studies are in the lab. Steroids were ordered by Dr. Mora at your pharmacy. 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 Pain medicines as needed. Follow-up with Dr. Mora. Return if any worsening symptoms. Disposition Disposition: Home, Self Care
[2022-07-22] MEDS: 0.9% Normal Saline 1,000 ML 1000 ML IV (21:23)
[2022-07-22] MEDS: Morphine 4 MG/ML Syringe IV (23:10)
[2022-07-23] MEDS: MethylPREDNISolone 125 MG/2 ML Vial IV (00:29)
[2022-07-23 00:31] VITALS: BP 135/90; PULSE 81; RESP 18; O2SAT 97
== END 2022-07-23 00:33 | disposition home or self-care (01) ==
PROVIDERS: Emergency Provider Emergency Medicine; PCP Family Medicine; Visit Provider Emergency Medicine
DX: K51.90 Ulcerative colitis, unspecified, without complications (principal); R19.7 Diarrhea, unspecified; R10.9 Unspecified abdominal pain; Z87.19 Personal history of other diseases of the digestive system
CPT/HCPCS: 74177; 80048; 81001; 85025; 87493; 87506; 96361; 96374; 96375; 99282; J7030; Q9967; A4216

== ENCOUNTER → 2022-10-05 | Outpatient (CLI) | payer MEDICAID, SELFPAY ==
[2022-10-05 10:21] LABS: Absolute Neutrophil Count 8.9 X10^3/uL (2.0-7.7); Basophil# 0.01 X10^3/uL; Basophil% 0.1 % (0-1); Eosinophil# 0.02 X10^3/uL; Eosinophils% 0.2 % (0-5); Hematocrit 37.2 % (40-54); Hemoglobin 11.9 g/dL (13.0-16.5); Lymphocyte % 16.1 % (19-41); Mean Corpuscular Hgb 27.5 pg (27.0-32.0); Mean Corpuscular Volume 85.9 fL (80-94); Monocyte# 1.36 X10^3/uL; NRBC Flagged by Analyzer 0 % (0-5); Neutrophil % 71.6 % (47-70); Platelet Count 284 K/mm3 (150-450); RBC Distribution Width CV 14.2 % (11.6-14.6); RBC Distribution Width SD 44.5 fl (35.1-43.9); Red Blood Count 4.33 M/mm3 (4.6-6.2); White Blood Count 12.4 K/mm3 (4.4-11.0)
[2022-10-05 10:38] LABS: Erythrocyte Sedimentation Rate 7 mm/hr (0-20)
[2022-10-05 10:48] LABS: ALB/GLOB Ratio 0.9 RATIO (0.9-2.4); AST(SGOT) 11 U/L (15-37); Alanine Aminotransfer ALT/SGPT 19 U/L (16-61); Alkaline Phosphatase 49 U/L (45-117); Anion Gap 6 (5-15); BUN 16 mg/dL (7-18); BUN/Creat Ratio 18.3 RATIO (10-20); CRP 7.53 mg/L (0.0-3.0); Calcium,Total 8.8 mg/dL (8.5-10.1); Chloride 104 mmol/L (98-107); Creatinine, Serum 0.87 mg/dL (0.70-1.30); EST Glomerular Filtration Rate 110 mL/min (>60); Est Glom Filt Rate - Afr Amer 133 mL/min (>60); Globulin 3.3 g/dL (2.2-4.2); Glucose 78 mg/dL (74-106); Protein, Total 6.3 g/dL (6.4-8.2); Sodium Level 140 mmol/L (136-145)
== END | disposition home or self-care (01) ==
PROVIDERS: PCP Family Medicine; Referring Provider Internal Medicine Gastroenterology; Visit Provider Internal Medicine Gastroenterology
DX: K51.90 Ulcerative colitis, unspecified, without complications (principal)
CPT/HCPCS: 36415; 80053; 85025; 85652; 86140

== ENCOUNTER → 2022-10-14 | Outpatient (CLI) | payer MEDICAID, SELFPAY ==
[2022-10-14 08:16] LABS: Potassium 3.5 mmol/L (3.5-5.1)
[2022-10-16 20:34] LABS: Pancreatic Elastase, Fecal > 500 (>200)
[2022-10-19 21:25] LABS: Calprotectin, Stool 693 ug/g (0-120)
== END | disposition home or self-care (01) ==
LOC: LAB 07:13
PROVIDERS: PCP Family Medicine; Referring Provider Internal Medicine Gastroenterology; Visit Provider Internal Medicine Gastroenterology
DX: K51.90 Ulcerative colitis, unspecified, without complications (principal); E87.6 Hypokalemia; K58.9 Irritable bowel syndrome, unspecified
CPT/HCPCS: 36415; 82653; 83630; 83993; 84132; 87493

== ENCOUNTER → 2023-07-05 | Outpatient (CLI) | payer MEDICAID, SELFPAY ==
[2023-07-05 10:29] LABS: Erythrocyte Sedimentation Rate 20 mm/hr (0-20)
[2023-07-05 10:31] LABS: Platelet Count 436 K/mm3 (150-450); RET-HE 27.8 pg (30-35); Reticulocyte Count 1.05 % (0.5-1.5)
[2023-07-05 11:24] LABS: Ferritin 8 ng/mL (26-388); Iron Binding Capacity,Total 379 ug/dL (250-450); LDH 151 U/L (87-241)
[2023-07-07 14:09] LABS: Albumin 3.7 g/dL (2.9-4.4); Alpha-1-Globulins 0.3 g/dL (0.0-0.4); Alpha-2-Globulins 0.9 g/dL (0.4-1.0); Gamma Globulin 1.2 g/dL (0.4-1.8); Immunoglobulin A 158 mg/dL (90-386); Immunoglobulin G 1208 mg/dL (603-1613); Immunoglobulin M 123 mg/dL (20-172); PROEL- TOTAL PROTEIN 7.2 g/dL (6.0-8.5); QNTFERON TB Mitogen Value > 10.00 IU/mL (.); QNTFERON TB Nil Value 0.13 IU/mL (.); QNTFERON TB1+ Ag Value 0.05 IU/mL (.); QNTFERON TB2+ Ag Value 0.06 IU/mL (.); QNTIFERON TB Positive Criteria Negative (Negative)
== END | disposition home or self-care (01) ==
LOC: LAB 09:55
PROVIDERS: PCP Family Medicine; Referring Provider Internal Medicine Gastroenterology; Visit Provider Internal Medicine Gastroenterology
DX: K51.90 Ulcerative colitis, unspecified, without complications (principal); E87.6 Hypokalemia
CPT/HCPCS: 36415; 82728; 82784; 83550; 83615; 84165; 85045; 85652; 86140; 86334; 86480

== ENCOUNTER → 2023-07-15 | Outpatient (CLI) | payer MEDICAID, SELFPAY ==
[2023-07-19 22:06] LABS: Calprotectin, Stool 2090 ug/g (0-120)
== END | disposition home or self-care (01) ==
LOC: LABSPEC 09:04
PROVIDERS: PCP Family Medicine; Visit Provider Internal Medicine Gastroenterology
DX: K51.90 Ulcerative colitis, unspecified, without complications (principal); E87.6 Hypokalemia
CPT/HCPCS: 83630; 83993

== ENCOUNTER → 2023-09-10 | Outpatient (CLI) | payer MEDICAID, SELFPAY ==
--- OUTSIDE RECORDS SUMMARY | 2023-09-10 12:12 | XMS RPT_ITS | CCD ---
Author Name Unknown Address [address] [place] [address] Organization [facility] Results Test Name Value Interpretation Reference Range Facil ity Progress note 06-12-2021 Note Date & Type Note Facility 06-12-2021 Note HNO ID: [id number] Author: Jhonathan Addison MD Service: ? Author Type: Physician Type: Progress Notes Filed: 06/12/2021 4:24 PM Note Text: GASTROENTEROLOGY PROGRESS NOTE OUTPATIENT FOLLOW UP HPI: I saw Jose Smith today for a follow up regarding UC proctosigmoiditis. Jose Smith was last seen here by me on 05/15/2021. This is a telephone/Virtual Visit being conducted as a result of the COVID-19 pandemic. The patient has consented to this virtual interaction. He needed another short course of Prednisone. He tried to taper Pred 40mg over 16 days and has been well. Now remains on Asacol 800mg TID. Has had 2 course of prednisone. Now feels well, says it's best he's ever been. Has not had much lower abdo pain or distension. Having 1-2 BM/day, previously 5-6 BM/day. No blood or melena. More solid stool. No EIM of IBD. No N/V, no dysphagia or odynophagia. Weight is stable: around 175lbs. PAST MEDICAL HISTORY Diagnosis Date - A-fib (FORMERLY [facility]) Found s/p seizure in 03/2020; wore holter monitor for 1 month; no follow up needed per patient; does not remember the name of the retail aide; was at [place] - Seizure ([facility]) one time only in 03/2020; was told by ED to follow up with neurology; patient did not do this - Ulcerative colitis (HCC) diagnosed in 2011 PAST SURGICAL HISTORY Procedure Laterality Date - COLONOSCOPY x3 Social History Tobacco Use - Smoking status: Never Smoker - Smokeless tobacco: Never Used Substance Use Topics - Alcohol use: Never - Drug use: Never Family history reviewed. No history of IBD, CRC or HPB malignancy. Current Outpatient Medications Medication Sig - mesalamine (ASACOL HD) 800 mg TbEC EC tablet Take 2 tabs PO three times daily - predniSONE (DELTASONE) 10 mg tablet Take 4 tabs po daily for 4 days, then take 3 tabs po daily for 4 days, then take 2 tabs po daily for 4 days and then take 1 tab po daily for 4 days. No current facility-administered medications for this visit. ALLERGIES No Known Allergies REVIEW OF SYSTEMS GASTROINTESTINAL: SEE ABOVE URINARY: No dark urine or hematuria unless documented above CARDIOVASCULAR: No chest pain NEUROLOGICAL: No new focal neuro deficits CONSTITUTIONAL: No weight loss or fever unless documented above EYES: No scleral icterus unless documented above EARS, NOSE AND THROAT: No deformities or abnormalities RESPIRATORY: No dyspnea SKIN: No rashes other than documented above ENDOCRINE: No features of hypothyroidism other than those documented above PSYCHIATRIC: No overt joni or psychosis HEMATOLOGIC No bruising or hemarthroses MUSCULOSKELETAL: No myalgias or bony deformities IMMUNOLOGIC: No immune deficits unless documented elsewhere PHYSICAL EXAMINATION: There were no vitals taken for this visit. GENERAL APPEARANCE: Well appearing, alert, in no acute distress, well-hydrated, well nourished. SKIN: Skin color, texture, turgor normal, no suspicious rashes or lesions. EYES: Anicteric sclera. Pupils are equally round and reactive to light. Extraocular movements are intact. NECK: Supple, no adenopathy; thyroid symmetric, normal size, no bruits. LUNGS: No accessory muscle use, no cyanosis, no asymmetric calf swelling, no bony deformity. HEART: Normal JVP, no significant peripheral edema, no thrill ABDOMEN: Abdomen soft, non-tender, non distended. No masses, ascites or hepatosplenomegaly. EXTREMITIES: No deformities, edema, skin discoloration, clubbing or cyanosis. NEUROLOGIC: Gait normal. Sensation and strength grossly intact. DATA: Diagnostic tests and/or endoscopic procedures reviewed for today's visit: Most recent labs Most recent imaging LABS: Hemoglobin (g/dL) Date Value 06/09/2021 14.2 Hematocrit (%) Date Value 06/09/2021 41.9 WBC (k/uL) Date Value 06/09/2021 9.34 Lab Results Component Value Date LIPASE 43 10/21/2020 TBILI 1.0 06/09/2021 CREAT 0.99 11/29/2020 ALB 4.5 06/09/2021 CBILI 0.2 (H) 06/09/2021 ALKPHOS 78 06/09/2021 AST 15 06/09/2021 ALT 15 06/09/2021 TPROT 7.1 06/09/2021 Plan ASSESSMENT AND PLAN: 26M with hx of UC (dx 2011, left sided colitis, no prior surgery, currently maintained on Asacol 1.6g TID,?has had prior exposure to Remicade, Uceris, Aza)?presenting to establish care. ?He is mostly asymptomatic from a GI perspective. ? -?Left-sided ulcerative colitis Currently maintained on Asacol - will?continue for now as he has had nonresponse to other IBD medications in the past. IBD serology normal. He does intermittently use prednisone a few times a year, Rx by his PCP. Spoke to him about excessive steroid use and would want to avoid this long-term given side effects and complications. ? His most recent colonoscopy 11/2020 was done at the time of a flare. ?He also had some emotional stress with regards to his grandmother's?progressing illness at the time which ma (more content not included)... [facility] Progress note 05-05-2021 Note Date & Type Note Facility 05-05-2021 Note HNO ID: [id number] Author: Jhonathan Addison MD Service: ? Author Type: Physician Type: Progress Notes Filed: 05/05/2021 3:21 PM Note Text: GASTROENTEROLOGY PROGRESS NOTE OUTPATIENT FOLLOW UP HPI: I saw Jose Smith today for a follow up regarding UC proctosigmoiditis. Jose Smith was last seen here by me on 03/06/2021. This is a telephone/Virtual Visit being conducted as a result of the COVID-19 pandemic. The patient has consented to this virtual interaction. Pt notes he has more problems when he is more stressed. Says that his grandmother has gotten worse. He has been busy with her care. He remains on Asacol 1.6g TID. He has finished the prednisone as of December 2020. Has not been able to eat much. Was having lower abdo pain and distension. Having 5-6 BM/day. Formed but soft stool. No melena or hematochezia. No N/V. No dysphagia or odynophagia. Thinks he has lost a few lbs as he has not been eating. No EIM of IBD. PAST MEDICAL HISTORY Diagnosis Date - A-fib (FORMERLY [facility]) Found s/p seizure in 03/2020; wore holter monitor for 1 month; no follow up needed per patient; does not remember the name of the retail aide; was at [place] - Seizure ([facility]) one time only in 03/2020; was told by ED to follow up with neurology; patient did not do this - Ulcerative colitis ([facility]) diagnosed in 2011 PAST SURGICAL HISTORY Procedure Laterality Date - COLONOSCOPY x3 Social History Tobacco Use - Smoking status: Never Smoker - Smokeless tobacco: Never Used Substance Use Topics - Alcohol use: Never - Drug use: Never Family history reviewed. No history of IBD, CRC or HPB malignancy. Current Outpatient Medications Medication Sig - mesalamine (ASACOL HD) 800 mg TbEC EC tablet Take 2 tabs PO three times daily No current facility-administered medications for this visit. ALLERGIES No Known Allergies REVIEW OF SYSTEMS GASTROINTESTINAL: SEE ABOVE URINARY: No dark urine or hematuria unless documented above CARDIOVASCULAR: No chest pain NEUROLOGICAL: No new focal neuro deficits CONSTITUTIONAL: No weight loss or fever unless documented above EYES: No scleral icterus unless documented above EARS, NOSE AND THROAT: No deformities or abnormalities RESPIRATORY: No dyspnea SKIN: No rashes other than documented above ENDOCRINE: No features of hypothyroidism other than those documented above PSYCHIATRIC: No overt joni or psychosis HEMATOLOGIC No bruising or hemarthroses MUSCULOSKELETAL: No myalgias or bony deformities IMMUNOLOGIC: No immune deficits unless documented elsewhere PHYSICAL EXAMINATION: There were no vitals taken for this visit. GENERAL APPEARANCE: Well appearing, alert, in no acute distress, well-hydrated, well nourished. SKIN: Skin color, texture, turgor normal, no suspicious rashes or lesions. EYES: Anicteric sclera. Pupils are equally round and reactive to light. Extraocular movements are intact. NECK: Supple, no adenopathy; thyroid symmetric, normal size, no bruits. LUNGS: No accessory muscle use, no cyanosis, no asymmetric calf swelling, no bony deformity. HEART: Normal JVP, no significant peripheral edema, no thrill ABDOMEN: Abdomen soft, non-tender, non distended. No masses, ascites or hepatosplenomegaly. EXTREMITIES: No deformities, edema, skin discoloration, clubbing or cyanosis. NEUROLOGIC: Gait normal. Sensation and strength grossly intact. DATA: Diagnostic tests and/or endoscopic procedures reviewed for today's visit: Most recent labs Most recent imaging LABS: Hemoglobin (g/dL) Date Value 11/29/2020 15.1 Hematocrit (%) Date Value 11/29/2020 44.9 WBC (k/uL) Date Value 11/29/2020 6.53 Lab Results Component Value Date LIPASE 43 10/21/2020 TBILI 1.2 11/29/2020 CREAT 0.99 11/29/2020 ALB 4.5 11/29/2020 CBILI 0.2 (H) 11/29/2020 ALKPHOS 77 11/29/2020 AST 17 11/29/2020 ALT 16 11/29/2020 TPROT 7.4 11/29/2020 Plan ASSESSMENT AND PLAN: 26M with hx of UC (dx 2011, left sided colitis, no prior surgery, currently maintained on Asacol 1.6g TID,?has had prior exposure to Remicade, Uceris, Aza)?presenting to establish care. ?He is mostly asymptomatic from a GI perspective. ? -?Left-sided ulcerative colitis Currently maintained on Asacol - will?continue for now as he has had nonresponse to other IBD medications in the past. He does intermittently use prednisone a few times a year, Rx by his PCP. Spoke to him about excessive steroid use and would want to avoid this long-term given side effects and complications. ? His most recent colonoscopy 11/2020 was done at the time of a flare. He also had some emotional stress with regards to his grandmother's progressing illness at the time which may have precipitated things. There was active ulcerative proctosigmoiditis with confluent inflammation and biopsies confirming the same. He completed a prednisone taper and improved (more content not included)... [facility] Progress note 12-20-2020 Note Date & Type Note Facility 12-20-2020 Note HNO ID: [id number] Author: Jhonathan Addison MD Service: ? Author Type: Physician Type: Progress Notes Filed: 12/20/2020 12:10 PM Note Text: GASTROENTEROLOGY PROGRESS NOTE OUTPATIENT FOLLOW UP HPI: I saw Jose Smith today for a follow up regarding recent scope. Jose Smith was last seen here by me on 12/10/2020. This is a telephone/Virtual Visit being conducted as a result of the COVID-19 pandemic. The patient has consented to this virtual interaction. Had c-scope done 11/29/2020 Active ulcerative proctosigmoiditis with confluent inflammation and ulcers up to 35 cm Minimal inflammation in descending and transverse colon Normal terminal ileum A. Ascending colon, biopsy - Benign colonic mucosa with no pathologic diagnosis. ? - No active colitis, collagenous colitis, or lymphocytic colitis is seen. ? B. Transverse colon, biopsy - Moderate active colitis with chronic changes. ? - Negative for dysplasia. - See comment. C. Descending colon, biopsy - Moderate active colitis with chronic changes. ? - Negative for dysplasia. - See comment. D. Sigmoid colon, biopsy - Focally ulcerated mucosa with moderate active colitis and chronic changes. ? - Negative for dysplasia. - See comment. E. Rectum, biopsy - Focally ulcerated mucosa with moderate active colitis and chronic changes. ? - Negative for dysplasia. - See comment. ? at ?2:39 PM Diagnosis Comment Part B, C, D and E reveal colonic mucosa with lymphoplasmacytic infiltrate in the lamina propria, focal cryptitis, and crypt abscesses. No granulomas are identified. The findings are consistent with patient's known history of ulcerative colitis. He reports that it took longer, about 2 weeks, before he saw benefit from the prednisone. Having some lower abdo pain, somewhat better than before. No N/V. No dysphagia or odynophagia. Having diarrhea still: having 6 BM/day (his norm is 3-4/day, but was going 8-9 BM/day). No hematochezia or melena. Had lost 10lbs with this flare. No EIM of IBD. Currently on Asacol 1.6g TID. Also on Pred taper, now on 10mg daily. He is not taking Canasa supp for some reason. PAST MEDICAL HISTORY Diagnosis Date - A-fib (FORM[facility]LY [facility]) Found s/p seizure in 03/2020; wore holter monitor for 1 month; no follow up needed per patient; does not remember the name of the retail aide; was at [place] - Seizure (HCC) one time only in 03/2020; was told by ED to follow up with neurology; patient did not do this - Ulcerative colitis (HCC) diagnosed in 2011 PAST SURGICAL HISTORY Procedure Laterality Date - COLONOSCOPY x3 Social History Tobacco Use - Smoking status: Never Smoker - Smokeless tobacco: Never Used Substance Use Topics - Alcohol use: Never - Drug use: Never Family history reviewed. No history of IBD, CRC or HPB malignancy. Current Outpatient Medications Medication Sig - mesalamine (ASACOL HD) 800 mg TbEC EC tablet Take 2 tabs PO three times daily No current facility-administered medications for this visit. ALLERGIES No Known Allergies REVIEW OF SYSTEMS GASTROINTESTINAL: SEE ABOVE URINARY: No dark urine or hematuria unless documented above CARDIOVASCULAR: No chest pain NEUROLOGICAL: No new focal neuro deficits CONSTITUTIONAL: No weight loss or fever unless documented above EYES: No scleral icterus unless documented above EARS, NOSE AND THROAT: No deformities or abnormalities RESPIRATORY: No dyspnea SKIN: No rashes other than documented above ENDOCRINE: No features of hypothyroidism other than those documented above PSYCHIATRIC: No overt joni or psychosis HEMATOLOGIC No bruising or hemarthroses MUSCULOSKELETAL: No myalgias or bony deformities IMMUNOLOGIC: No immune deficits unless documented elsewhere PHYSICAL EXAMINATION: There were no vitals taken for this visit. This is a telephone/Virtual Visit being conducted as a result of the COVID-19 pandemic. The patient has consented to this virtual interaction. DATA: Diagnostic tests and/or endoscopic procedures reviewed for today's visit: Most recent labs Most recent imaging LABS: Hemoglobin (g/dL) Date Value 11/29/2020 15.1 Hematocrit (%) Date Value 11/29/2020 44.9 WBC (k/uL) Date Value 11/29/2020 6.53 Lab Results Component Value Date LIPASE 43 10/21/2020 TBILI 1.2 11/29/2020 CREAT 0.99 11/29/2020 ALB 4.5 11/29/2020 CBILI 0.2 (H) 11/29/2020 ALKPHOS 77 11/29/2020 AST 17 11/29/2020 ALT 16 11/29/2020 TPROT 7.4 11/29/2020 Plan ASSESSMENT AND PLAN: 25M with hx of UC (dx 2011, left sided colitis, no prior surgery, currently maintained on Asacol 1.6g TID, has had prior exposure to Remicade, Uceris, Aza) presenting to [facility]. He is mostly asymptomatic from a GI perspective. - Left-sided ulcerative colitis Currently maintained on Asacol - will co (more content not included)... [facility] Progress note 10-18-2020 Note Date & Type Note Facility 10-18-2020 Note HNO ID: [id number] Author: Jhonathan Addison Service: ? Author Type: Physician Type: Progress Notes Filed: 10/18/2020 12:48 PM Note Text: GASTROENTEROLOGY CONSULT HPI: Jose Smith is a 25 year old male who presents for UC. He was last seen by Dr. Joaquin (not seen since 2015 as he doesn't take Medicaid). Was told it's left sided colitis, and was dx in 2011. He is currently on Asacol 1.6g TID. Has been on same dose for last 3 yrs and being Rx by PCP. Never needed surgery. He used Remicade (used in [id number] with primary non-response, and also had worsened diarrhea and cramping, also viral infxn), also used Uceris, Aza, Balsalazide which didn't help. Has needed Prednisone at times, takes a 3 week course when he needs it which is about 3-4 times a year. Having 3-4 BM/day, each time takes 10-15mins. Soft BMs, but no blood or melena. The patient is otherwise asymptomatic from a GI perspective. No abdominal pain, nausea or vomiting. No dysphagia, odynophagia or GERD. No weight loss. No melena or hematochezia. No jaundice, scleral icterus, dark urine or pale stool. 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 No pertinent past medical history. History reviewed. No pertinent surgical history. Current Outpatient Medications Medication Sig - mesalamine (ASACOL HD) 800 mg TbEC EC tablet Take 800 mg by mouth three times daily. - predniSONE (DELTASONE) 10 mg tablet Take 10 mg by mouth as needed. No current facility-administered medications for this visit. ALLERGIES No Known Allergies Family history reviewed. No history of colon cancer or IBD. Social History Tobacco Use - Smoking status: Never Smoker - Smokeless tobacco: Never Used Substance Use Topics - Alcohol use: Not on file - Drug use: Not on file REVIEW OF SYSTEMS GASTROINTESTINAL: SEE ABOVE URINARY: No dark urine or hematuria unless documented above CARDIOVASCULAR: No chest pain NEUROLOGICAL: No new focal neuro deficits CONSTITUTIONAL: No weight loss or fever unless documented above EYES: No scleral icterus unless documented above EARS, NOSE AND THROAT: No deformities or abnormalities RESPIRATORY: No dyspnea SKIN: No rashes other than documented above ENDOCRINE: No features of hypothyroidism other than those documented above PSYCHIATRIC: No overt joni or psychosis HEMATOLOGIC No bruising or hemarthroses MUSCULOSKELETAL: No myalgias or bony deformities IMMUNOLOGIC: No immune deficits unless documented elsewhere PHYSICAL EXAMINATION: BP 117/82 Pulse 80 GENERAL APPEARANCE: Well appearing, alert, in no acute distress, well-hydrated, well nourished. SKIN: Skin color, texture, turgor normal, no suspicious rashes or lesions. EYES: Anicteric sclera. Pupils are equally round and reactive to light. Extraocular movements are intact. NECK: Supple, no adenopathy; thyroid symmetric, normal size, no bruits. LUNGS: No accessory muscle use, no cyanosis, no asymmetric calf swelling, no bony deformity. HEART: Normal JVP, no significant peripheral edema, no thrill ABDOMEN: Abdomen soft, non-tender, non distended. No masses, ascites or hepatosplenomegaly. EXTREMITIES: No deformities, edema, skin discoloration, clubbing or cyanosis. NEUROLOGIC: Gait normal. Sensation and strength grossly intact. LABS: Lab tests reviewed. No results found for: HB, HCT, WBC, PLT No results found for: CREAT No results found for: AST No results found for: ALT No results found for: BLSP, BLCUL, TBILI, CBILI, ABORHD, ABSCREEN, WBC, RBC, BILIT%DIG,%DBS No results found for: TSH IMAGING: Imaging including X-rays, Ultrasound, CT scans, MRI scans reviewed. none Old records reviewed if available. Plan ASSESSMENT AND PLAN: 25M with hx of UC (dx 2012, left sided colitis, no prior surgery, currently maintained on Asacol 1.6g TID, has had prior exposure to Remicade, Uceris, Aza) presenting to [facility]. He is mostly asymptomatic from a GI perspective. - Left-sided ulcerative colitis Currently maintained on Asacol 1.6 g 3 times daily - will continue for now as he has had nonresponse to other IBD medications in the past. He does intermittently use prednisone a few times a year, Rx by his PCP We will check inflammatory markers including FCP and a CRP. Also arrange colonoscopy for restaging of his disease Thank you for involving me in the care of this patient. Jhonathan Addison MD MPH [facility] Summary Purpose Family History No Family History Records FoundNo Family History Records FoundNo Family History Records Found Advance Directives No Advanced Directives Records FoundNo Advanced Directives Records FoundNo Advanced Directives Records Found Additional Source Comments (unrecognized sect ion and content) No Status Records FoundNo Status Records FoundNo Status Records Found INFORMATION SOURCE (unrecogn ized section and content) DATE CREATED AUTHOR AUTHOR'S ORGANIZ ATION 06/16/2021 [facility] DATE CREATED AUTHOR AUTHOR'S ORGANIZ ATION 09/24/2021 [facility] FOR RECORDS PERTAINING TO PATIENTS WHO ARE OR HAVE BEEN ENROLLED IN A CHEMICAL DEPENDENCY/SUBSTANCEABUSE PROGRAM, SOME INFORMATION MAY BE OMITTED. This clinical summary was aggregated from multiple sources. Caution should be exercised in using it in the provision of clinical care. This summary normalizes information from multiple sources, and as a consequence, information in this document may materially change the coding, format and clinical context of patient data. In addition, data may be omitted in some cases. CLINICAL DECISIONS SHOULD BE BASED ON THE PRIMARY CLINICAL RECORDS. [employer] provides no warranty or guarantee of the accuracy or completeness of information in this document.
[2023-09-15 00:06] LABS: Calprotectin, Stool 966 ug/g (0-120); Fats, Neutral Normal (.); Fats, Total Normal (.)
[2023-09-15 13:08] LABS: Pancreatic Elastase, Fecal 374 (>200)
== END | disposition home or self-care (01) ==
LOC: LABSPEC 11:45
PROVIDERS: PCP Family Medicine; Referring Provider Internal Medicine Gastroenterology; Visit Provider Internal Medicine Gastroenterology
DX: K51.311 Ulcerative (chronic) rectosigmoiditis with rectal bleeding (principal)
CPT/HCPCS: 82274; 82653; 82705; 83630; 83993; 87177; 87209; 87329; 87493; 87506